=== PATIENT | female | born 1940 | race Caucasian/White ===

== ENCOUNTER 2016-10-25 12:32 | Inpatient (IN) | payer OTHER ==
[~2016-10-25] VITALS: Ht 165.1 cm; Wt 66.7 kg
[2016-10-25] MEDS ORDERED: NITROGLYCERIN 0.4 MG/TAB BOTTLE SL ONE (12:45)
[2016-10-25] MEDS ORDERED: AMLO5TAB2 PO (12:49)
[2016-10-25] MEDS ORDERED: HYDR12.5 PO (12:49)
[2016-10-25 12:51] LABS: BASOPHILS % (AUTO) 0.4 % (0.0-2.0); EOSINOPHILS # (AUTO) 0.1 K/uL (0.0-0.7); EOSINOPHILS % (AUTO) 1.2 % (0.0-7.0); HEMATOCRIT 37.4 % (37-47); HEMOGLOBIN 12.4 G/DL (12.0-16.0); LYMPHOCYTES # (AUTO) 1.8 K/UL (0.8-4.8); LYMPHOCYTES % (AUTO) 23.7 % (20.5-51.5); MEAN CORPUSCULAR HEMOGLOBIN 29.3 UUG (27.0-31.0); MEAN CORPUSCULAR HGB CONC 33 g/dL (32.0-37.0); MEAN CORPUSCULAR VOLUME 88.1 FL (81.0-99.0); MONOCYTES # (AUTO) 0.5 K/UL (0.1-1.30); MONOCYTES % (AUTO) 6.4 % (0.0-11.0); NEUTROPHILS % (AUTO) 68.3 % (38.5-71.5); PLATELET COUNT (AUTO) 227 K/UL (150-450); RED BLOOD CELL COUNT(AUTO) 4.24 MIL/UL (4.2-5.4); WHITE BLOOD COUNT (AUTO) 7.4 K/UL (4.0-11.2)
--- NOTE | 2016-10-25 12:53 | NUR ---
PT IS IN ROOM #1B. DR EPPS EVALUATED THE PT.
[2016-10-25 13:00] LABS: CARBON DIOXIDE 34 mmol/L (21-32); CHLORIDE 103 mmol/L (98-107); GLUCOSE 108 mg/dL (74-106); POTASSIUM 3.5 mmol/L (3.5-5.1); UREA NITROGEN, BLOOD 25 mg/dL (7-18)
[2016-10-25] MEDS ORDERED: ONDANSETRON IV *ER 4 MG/2 ML VIAL IV ONE (13:00)
[2016-10-25] MEDS ORDERED: MORPHINE SULFATE 2 MG/1 ML DISP.SYRIN IV ONE ×2 (13:00→14:15)
--- NOTE | 2016-10-25 13:04 | NUR ---
Jerod beltran in [facility] - 10/25/16 at 1304 by SADIA PT IS IN ROOM #1B. OLGA EPPS EVALUATED THE PT,
[2016-10-25] MEDS ORDERED: ONDANSETRON 4 MG/2 ML VIAL ONE (13:07)
[2016-10-25] MEDS ORDERED: MORPHINE SULFATE 2 MG/1 ML DISP.SYRIN ONE ×2 (13:20→14:19)
[2016-10-25] MEDS ORDERED: ACETAMINOPHEN 325 MG TABLET PO PRN (15:00)
[2016-10-25] MEDS ORDERED: ONDANSETRON 4 MG/2 ML VIAL IV PRN (15:00)
[2016-10-25] MEDS ORDERED: MORPHINE SULFATE 2 MG/1 ML DISP.SYRIN IV PRN (15:00)
--- NOTE | 2016-10-25 15:01 | NUR ---
REPORT WAS GIVEN TO DOCTOR OF NAPR[facility]ATH[facility]IC[facility]. PT WAS TRANSFERED TO ROOM #217.
[2016-10-25 15:15] VITALS: BP 132/64
[2016-10-25] MEDS ORDERED: ASPIRIN EC 325 MG TABLET.DR PO SCH (15:15)
[2016-10-25] MEDS ORDERED: NITROGLYCERIN 0.4 MG/TAB BOTTLE SL PRN (15:15)
[2016-10-25 15:18] LABS: BILIRUBIN,DIRECT 0.2 mg/dL (0.0-0.2); BILIRUBIN,TOTAL 0.6 mg/dL (0.2-1.0); TOTAL PROTEIN, SERUM 7.2 g/dL (6.4-8.2)
--- NOTE | 2016-10-25 15:20 | NUR ---
PATIENT RECEIVED FROM ER, IMMEDIATELY US AND EKG PERFORMED ON PATIENT. INTAKE PROCEDURE COMPLETED AND PATIENT SERVED DINNER, AND FIRST DOSE ON ANTIBIOTICS. PATIENT WAS SEEN BY RIVER TESTER, NEW LABS TO BE DRAWN IN THE NEXT 3-6 HOURS TO EVALUATE TROPONIN LEVELS.
[2016-10-25] MEDS ORDERED: FUROSEMIDE 20 MG/2 ML VIAL IV ONE (15:30)
[2016-10-25] MEDS: PIPERACILLIN/TAZOBACTAM/D5W 50 ML IV SCH ×2 (18:37→23:41)
[2016-10-25 19:00] VITALS: BP 134/76
[2016-10-25] MEDS ORDERED: FUROSEMIDE 20 MG/2 ML VIAL ONE (20:00)
--- NOTE | 2016-10-25 20:00 | NUR ---
received patient alert,oriented,in no acute distress,daughter at bedside,patient denies chest pain,bp 134/76,SR,SB on monitor,lasix 20 mg iv given as ordered,bedside commode provided,instruction,plan of care given,family verbalized understanding.
[2016-10-25] MEDS: METOPROLOL TARTRATE 25 MG TABLET PO SCH (20:31)
--- NOTE | 2016-10-25 23:40 | NUR ---
patient feels nausea and vomiting small amount of undigested food, Zofran 4 mg iv admin.
[2016-10-26] VITALS (7 sets, daily range): BP systolic 93–134; BP diastolic 43–67
--- NOTE | 2016-10-26 00:30 | NUR ---
patient feels better,nausea improved.
[2016-10-26 04:50] LABS: EOSINOPHILS # (AUTO) 0.1 K/uL (0.0-0.7); EOSINOPHILS % (AUTO) 0.8 % (0.0-7.0); HEMATOCRIT 38.3 % (37-47); LYMPHOCYTES # (AUTO) 0.6 K/UL (0.8-4.8); LYMPHOCYTES % (AUTO) 4.8 % (20.5-51.5); MEAN CORPUSCULAR HEMOGLOBIN 29.9 UUG (27.0-31.0); MEAN CORPUSCULAR HGB CONC 34 g/dL (32.0-37.0); MONOCYTES # (AUTO) 0.7 K/UL (0.1-1.30); MONOCYTES % (AUTO) 5.6 % (0.0-11.0); NEUTROPHILS # (AUTO) 11.4 K/UL (1.8-8.9); NEUTROPHILS % (AUTO) 88.8 % (38.5-71.5); PLATELET COUNT (AUTO) 220 K/UL (150-450); RED BLOOD CELL COUNT(AUTO) 4.35 MIL/UL (4.2-5.4); WHITE BLOOD COUNT (AUTO) 12.8 K/UL (4.0-11.2)
[2016-10-26 04:57] LABS: THYROID STIMULATING HORMONE 0.517 mIU/mL (0.358-3.740)
[2016-10-26 06:14] LABS: ALANINE AMINOTRANSFERASE 463 U/L (14-59); ALKALINE PHOSPHATASE 186 U/L (50-136); ASPARTATE AMINOTRANSFERASE 588 U/L (15-37); BILIRUBIN,TOTAL 1.5 mg/dL (0.2-1.0); CARBON DIOXIDE 32 mmol/L (21-32); CHLORIDE 102 mmol/L (98-107); CHOLESTEROL 195 mg/dL (<200); CREATININE 1.1 mg/dL (0.6-1.3); GLUCOSE 121 mg/dL (74-106); HDL CHOLESTEROL 53 mg/dL (40-60); MAGNESIUM 1.6 mg/dL (1.8-2.4); PHOSPHOROUS 4.1 mg/dL (2.5-4.9); POTASSIUM 3.5 mmol/L (3.5-5.1); TOTAL PROTEIN, SERUM 7.3 g/dL (6.4-8.2); TRIGLYCERIDES 80 MG/DL (30-150); UREA NITROGEN, BLOOD 24 mg/dL (7-18)
--- NOTE | 2016-10-26 06:26 | NUR ---
PATIENT SLEPT INTERMITTENTLY,NO ACUTE DISTRESS,NSR/SINUS ENDY ON MONITOR,BP STABLE,FALL PRECAUTIONS,BED ALARM ON.
--- NOTE | 2016-10-26 08:00 | NUR ---
10/26/16 - 9450 Note on: RAMBO ESPANA ASSUMED CARE OF PT, SB ON THE MONITOR, PT IS ASYMPTOMATIC. OTHER VITALS STABLE, NO PAIN REPORTED. PT IS FARSI SPEAKING, DAUGHTER AT THE BED SIDE TRANSLATING. WILL CONTINUE TO MONITOR
[2016-10-26] MEDS ORDERED: ASPIRIN EC 81 MG TABLET.DR PO SCH ×2 (09:00)
[2016-10-26] MEDS: METOPROLOL TARTRATE 25 MG TABLET PO SCH (09:00)
[2016-10-26] MEDS ORDERED: ASPIRIN EC 325 MG TABLET.DR PO SCH (09:00)
[2016-10-26] MEDS ORDERED: MAGNESIUM SULFATE/D5W 100 ML IV SCH (10:00)
[2016-10-26] MEDS ORDERED: PIPERACILLIN/TAZOBACTAM/D5W 3.375 G in PREMIXED 1 EACH IV SCH (10:00)
--- NOTE | 2016-10-26 10:30 | NUR ---
NURSE NOTES: NOTED ELEVATED TROPONIN, ELEVATED LIVER PANEL, ELEVATED WBC AND MG 1.6. NOTIFIED LAZARUS BUCKLE SORTER. SHE ATTENDED TO PT, ORDERED MG IV AND HIDA SCAN. DAUGHTER AT THE BED SIDE UPDATED ON STATUS AND PLAN OF CARE.
--- NOTE | 2016-10-26 11:31 | NUR ---
Clinical Pharmacy Note: Vancomycin Dosing per Pharmacy Subjective: Vancomycin IV to start on this 77 yo female patient for empiric therapy ht 165 cm wt 66.6 kg Objective: BUN 24/Scr 1.1 WBC 12.8 Temperature 97.8 Assessment/Plan: Will start vancomycin 1000mg IVPB Q26hr for a predicted vancomycin steady state trough level of 15 mcg/ml. 1st dose is due today at 1200. Will draw a vancomycin trough level prior to the 4th dose of vancomycin (not ordered yet). Will monitor renal function and adjust vancomycin dose, if needed, should renal function change significantly. Will follow daily. Addendum: 10/26/16 at 1545 by EMERSON SPAULDING Per RN patient was off the floor. Rescheduled for 1700 (when patient came back from test/procedure)
[2016-10-26 11:53] LABS: *BILIRUBIN,URIN NEGATIVE (NEGATIVE); *BLOOD, URINE 2+ (NEGATIVE); *COLOR,URINE YELLOW (YELLOW); *KETONES,URINE TRACE (NEGATIVE); *PROTEIN,URINE NEGATIVE (NEGATIVE); *UROBILINOGEN,URINE 0.2 E.U./dl (NORMAL); LEUKOCYTE ESTERASE ,URINE 1+ (NEGATIVE); NITRITE, URINE NEGATIVE (NEGATIVE); UGLUCOSE NEGATIVE (NEGATIVE)
[2016-10-26 11:55] LABS: *CLARITY,URINE HAZY (CLEAR)
[2016-10-26] MEDS ORDERED: VANCOMYCIN IV 1 G in PREMIXED 0 EACH IV SCH ×2 (12:00→17:00)
[2016-10-26 12:02] LABS: BACTERIA,URINE FEW /HPF (NONE SEEN)
[2016-10-26 12:03] LABS: SQUAMOUS EPITHELIAL CELL,UR MANY /HPF (NONE SEEN)
--- NOTE | 2016-10-26 12:45 | NUR ---
10/26/16 - 1327 Note on: RAMBO ESPANA PT DEPARTED FOR HIDA SCAN IN STABLE CONDITION S: O: A: P:
[2016-10-26 15:59] LABS: BASOPHILS % (AUTO) 0.4 % (0.0-2.0); EOSINOPHILS # (AUTO) 0.1 K/uL (0.0-0.7); EOSINOPHILS % (AUTO) 1.7 % (0.0-7.0); HEMATOCRIT 39.3 % (37-47); HEMOGLOBIN 12.8 G/DL (12.0-16.0); LYMPHOCYTES % (AUTO) 27.2 % (20.5-51.5); MEAN CORPUSCULAR HEMOGLOBIN 28.9 UUG (27.0-31.0); MEAN CORPUSCULAR HGB CONC 33 g/dL (32.0-37.0); MEAN CORPUSCULAR VOLUME 88.4 FL (81.0-99.0); MONOCYTES # (AUTO) 0.5 K/UL (0.1-1.30); MONOCYTES % (AUTO) 6.9 % (0.0-11.0); NEUTROPHILS # (AUTO) 4.8 K/UL (1.8-8.9); NEUTROPHILS % (AUTO) 63.8 % (38.5-71.5); PLATELET COUNT (AUTO) 215 K/UL (150-450); RED BLOOD CELL COUNT(AUTO) 4.45 MIL/UL (4.2-5.4); WHITE BLOOD COUNT (AUTO) 7.4 K/UL (4.0-11.2)
[2016-10-26 16:04] LABS: CARBON DIOXIDE 34 mmol/L (21-32); CHLORIDE 101 mmol/L (98-107); CREATININE 1.1 mg/dL (0.6-1.3); GLUCOSE 96 mg/dL (74-106); POTASSIUM 3.1 mmol/L (3.5-5.1); UREA NITROGEN, BLOOD 24 mg/dL (7-18)
[2016-10-26 16:15] LABS: ALANINE AMINOTRANSFERASE 398 U/L (14-59); ALKALINE PHOSPHATASE 165 U/L (50-136); ASPARTATE AMINOTRANSFERASE 361 U/L (15-37); BILIRUBIN,TOTAL 1.5 mg/dL (0.2-1.0); TOTAL PROTEIN, SERUM 7.1 g/dL (6.4-8.2)
[2016-10-26] MEDS: PIPERACILLIN/TAZOBACTAM/D5W 50 ML IV SCH ×2 (16:21→21:26)
[2016-10-26] MEDS ORDERED: HYDR50TA3 PO (17:42)
[2016-10-26] MEDS ORDERED: ALEN70TA45 PO (17:42)
[2016-10-26] MEDS: FUROSEMIDE 20 MG/2 ML VIAL IV SCH (18:09)
--- NOTE | 2016-10-26 18:20 | NUR ---
NURSES NOTE PLEASE CALL DAUGHTER WITH UPDATES. YANIRA [phone]
--- NOTE | 2016-10-26 19:03 | NUR ---
RN NOTE SPOKE TO DR GUTIERREZ, REPORTED LAB VALUES. NEW ORDER FOR HEPATITIS PANEL BLOOD WORK RECEIVED.
--- NOTE | 2016-10-26 19:19 | NUR ---
RN HAND OFF GIVEN TO GALDINO SUAREZ. PT IS IN STABLE CONDITION
--- NOTE | 2016-10-26 20:00 | NUR ---
PATIENT AWAKE,ALERT,FARSI SPEAKING,AFEBRILE,BP STABLE,DENIES ABDOMINAL PAIN,NO CHEST DISCOMFORT, NO NAUSEA NOTED, FAMILY VISITING AT BEDSIDE,PLAN OF CARE UP DATE,PATIENT NOT IN ANY DISTRESS,CONTINUE CLOSELY MONITOR.
[2016-10-27] MEDS: PIPERACILLIN/TAZOBACTAM/D5W 50 ML IV SCH (03:53)
[2016-10-27 04:12] VITALS: BP 127/60
--- NOTE | 2016-10-27 06:17 | NUR ---
PATIENT SLEEP MOST OF THE NIGHT,NO APPARENTLY DISTRESS,DENIES NAUSEA/PAIN,NEEDS ATTENDED.
[2016-10-27 06:47] LABS: BASOPHILS % (AUTO) 0.2 % (0.0-2.0); EOSINOPHILS # (AUTO) 0.2 K/uL (0.0-0.7); EOSINOPHILS % (AUTO) 3.2 % (0.0-7.0); HEMOGLOBIN 12.4 G/DL (12.0-16.0); LYMPHOCYTES # (AUTO) 1.9 K/UL (0.8-4.8); LYMPHOCYTES % (AUTO) 30.3 % (20.5-51.5); MEAN CORPUSCULAR HEMOGLOBIN 29.1 UUG (27.0-31.0); MEAN CORPUSCULAR HGB CONC 33 g/dL (32.0-37.0); MEAN CORPUSCULAR VOLUME 89.2 FL (81.0-99.0); MONOCYTES # (AUTO) 0.6 K/UL (0.1-1.30); MONOCYTES % (AUTO) 8.7 % (0.0-11.0); NEUTROPHILS # (AUTO) 3.6 K/UL (1.8-8.9); NEUTROPHILS % (AUTO) 57.6 % (38.5-71.5); PLATELET COUNT (AUTO) 191 K/UL (150-450); RED BLOOD CELL COUNT(AUTO) 4.27 MIL/UL (4.2-5.4); WHITE BLOOD COUNT (AUTO) 6.3 K/UL (4.0-11.2)
[2016-10-27 06:59] LABS: ALANINE AMINOTRANSFERASE 317 U/L (14-59); ALKALINE PHOSPHATASE 149 U/L (50-136); ASPARTATE AMINOTRANSFERASE 222 U/L (15-37); BILIRUBIN,TOTAL 0.8 mg/dL (0.2-1.0); CARBON DIOXIDE 35 mmol/L (21-32); CHLORIDE 101 mmol/L (98-107); CREATININE 1.3 mg/dL (0.6-1.3); GLUCOSE 91 mg/dL (74-106); MAGNESIUM 1.9 mg/dL (1.8-2.4); PHOSPHOROUS 4.2 mg/dL (2.5-4.9); POTASSIUM 3.2 mmol/L (3.5-5.1); TOTAL PROTEIN, SERUM 6.9 g/dL (6.4-8.2); UREA NITROGEN, BLOOD 23 mg/dL (7-18)
[2016-10-27] MEDS: ASPIRIN EC 325 MG TABLET.DR PO SCH ×2 (09:00→10:04)
[2016-10-27] MEDS: FUROSEMIDE 20 MG/2 ML VIAL IV SCH (10:03)
[2016-10-27] MEDS ORDERED: POTASSIUM CHLORIDE 20 MEQ TAB.PRT.SR PO ONE (10:15)
[2016-10-27] MEDS: PIPERACILLIN/TAZOBACTAM/D5W 2.25 G in PREMIXED 1 EACH IV SCH ×3 (10:17→22:00)
[2016-10-27] MEDS: ASPIRIN EC 81 MG TABLET.DR PO SCH (10:18)
[2016-10-27 11:56] VITALS: BP 119/66
[2016-10-27] MEDS ORDERED: REGADENOSON 0.4 MG/5 ML PREFILLED SYR IV ONE (14:00)
[2016-10-27] MEDS: PANTOPRAZOLE SODIUM 40 MG TABLET.DR PO SCH (14:13)
[2016-10-27 15:16] VITALS: BP 120/73
--- NOTE | 2016-10-27 20:00 | NUR ---
RECEIVED PATIENT AWAKE IN BED. PATIENT IS A/OX3. FARSI SPEAKING BUT ABLE TO MAKE SIMPLE NEEDS KNOWN, OTHERWISE PATIENT NEEDS A BORE MILL OPERATOR. DENIES PAIN OR DISCOMFORT. NO RESP. DISTRESS NOTED. H/L INTACT AND PATENT, NOTED TO RIGHT FA #20 GAUGE. CALL LIGHT IN REACH. ALL NEEDS ATTENDED. WILL CONTINUE TO MONITOR.
[2016-10-27 20:34] VITALS: BP 113/64
[2016-10-27] MEDS ORDERED: VANCOMYCIN IV 1 G in PREMIXED 0 EACH IV SCH (22:00)
[2016-10-28 04:00] VITALS: BP 96/60
[2016-10-28] MEDS: PIPERACILLIN/TAZOBACTAM/D5W 2.25 G in PREMIXED 1 EACH IV SCH ×2 (04:08→10:56)
[2016-10-28] MEDS: PANTOPRAZOLE SODIUM 40 MG TABLET.DR PO SCH (06:14)
--- NOTE | 2016-10-28 06:25 | NUR ---
PATIENT ASLEEP IN BED. EASILY AROUSABLE. SLEPT WELL THROUGHOUT THE NIGHT. VSS. DENIES PAIN. CALL LIGHT IN REACH. ALL NEEDS ATTENDED. WILL CONTINUE TO MONITOR.
[2016-10-28 06:46] LABS: ALANINE AMINOTRANSFERASE 200 U/L (14-59); ALKALINE PHOSPHATASE 123 U/L (50-136); ASPARTATE AMINOTRANSFERASE 94 U/L (15-37); BILIRUBIN,TOTAL 0.4 mg/dL (0.2-1.0); CARBON DIOXIDE 36 mmol/L (21-32); CHLORIDE 103 mmol/L (98-107); CREATININE 1.1 mg/dL (0.6-1.3); GLUCOSE 96 mg/dL (74-106); MAGNESIUM 1.7 mg/dL (1.8-2.4); PHOSPHOROUS 3.9 mg/dL (2.5-4.9); TOTAL PROTEIN, SERUM 6.5 g/dL (6.4-8.2); UREA NITROGEN, BLOOD 23 mg/dL (7-18)
[2016-10-28 06:57] LABS: BASOPHILS % (AUTO) 0.4 % (0.0-2.0); EOSINOPHILS # (AUTO) 0.2 K/uL (0.0-0.7); HEMATOCRIT 35.9 % (37-47); HEMOGLOBIN 11.8 G/DL (12.0-16.0); LYMPHOCYTES # (AUTO) 1.8 K/UL (0.8-4.8); LYMPHOCYTES % (AUTO) 25.8 % (20.5-51.5); MEAN CORPUSCULAR HEMOGLOBIN 29.2 UUG (27.0-31.0); MEAN CORPUSCULAR HGB CONC 33 g/dL (32.0-37.0); MEAN CORPUSCULAR VOLUME 88.8 FL (81.0-99.0); MONOCYTES # (AUTO) 0.5 K/UL (0.1-1.30); MONOCYTES % (AUTO) 7.6 % (0.0-11.0); NEUTROPHILS # (AUTO) 4.7 K/UL (1.8-8.9); NEUTROPHILS % (AUTO) 63.2 % (38.5-71.5); PLATELET COUNT (AUTO) 221 K/UL (150-450); RED BLOOD CELL COUNT(AUTO) 4.04 MIL/UL (4.2-5.4); WHITE BLOOD COUNT (AUTO) 7.2 K/UL (4.0-11.2)
[2016-10-28] MEDS: ASPIRIN EC 81 MG TABLET.DR PO SCH (09:03)
[2016-10-28] MEDS: FUROSEMIDE 20 MG/2 ML VIAL IV SCH (09:03)
[2016-10-28 10:10] LABS: HEPATITIS A AB, IgM Negative (Negative); HEPATITIS A AB, TOTAL Positive (Negative); HEPATITIS B SURFACE AB Non Reactive (.)
[2016-10-28] MEDS ORDERED: MAGNESIUM OXIDE 400 MG TABLET PO ONE ×2 (10:45)
[2016-10-28] MEDS: POTASSIUM CHLORIDE 20 MEQ TAB.PRT.SR PO SCH ×3 (10:56→13:50)
--- NOTE | 2016-10-28 12:00 | NUR ---
RESTING WELL NO SOB OR PAIN EAT WELL FAMILY AT BEDSIDE DR HAKEEM SCHOFIELD SEEN PATIENT AND LAB RESULT AND ORDER OK TO D/C HOME TODAY WITH PRECRIPTION [facility] WAS CALL TO INSTRUCTION HOME MEDICINE AND D/C INSTRUCTION GIVEN TO PATIENT AND FAMILY ,VERBALIZES UNDERSTAND AND SIGNS D/C SHEET
[2016-10-28 12:01] VITALS: BP 97/47
[2016-10-28] MEDS ORDERED: LEVOFLOXACIN 500 MG TABLET PO SCH (12:30)
[2016-10-28] MEDS ORDERED: LEVOFLOXACIN 500 MG TABLET PO ONE (13:00)
--- NOTE | 2016-10-28 13:30 | NUR ---
[facility] INSTRUCTION ON HOME MEDICINE TO PT /FAMILY /UNDERSTAND
--- NOTE | 2016-10-28 13:50 | NUR ---
D/C HOME WITH HER BELONGING CONDITION STABLE PAIN UNDERCONTROL
--- NOTE | 2016-10-28 13:50 | NUR ---
K DUR LAST DOSE GIVEN PRIOR D/C HOME TODAY
[2016-10-28] MEDS ORDERED: METRONIDAZOLE 500 MG TABLET PO SCH (14:00)
[2016-10-29 05:06] LABS: HEPATITIS Be ANTIGEN Negative (Negative)
[2016-10-29] MEDS ORDERED: LEVOFLOXACIN 250 MG TABLET PO SCH (13:00)
== END 2016-10-28 13:47 | disposition home or self-care (01) | DRG 190 ==
LOC: ER 12:40 → TELE 14:57 → MED 10-26 18:30
PROVIDERS: ADMIT Internal Medicine; ATTEND Internal Medicine
DX: I21.4 Non-ST elevation (NSTEMI) myocardial infarction (principal); I50.33 Acute on chronic diastolic (congestive) heart failure; E87.2 Acidosis; E88.09 Other disorders of plasma-protein metabolism, not elsewhere classified; M48.54XA Collapsed vertebra, not elsewhere classified, thoracic region, initial encounter for fracture; K80.20 Calculus of gallbladder without cholecystitis without obstruction; N39.0 Urinary tract infection, site not specified; I11.0 Hypertensive heart disease with heart failure; Z96.653 Presence of artificial knee joint, bilateral; Z82.3 Family history of stroke; Z82.49 Family history of ischemic heart disease and other diseases of the circulatory system; E87.6 Hypokalemia; E78.5 Hyperlipidemia, unspecified; Z79.899 Other long term (current) drug therapy; K75.9 Inflammatory liver disease, unspecified; Z90.49 Acquired absence of other specified parts of digestive tract; K52.9 Noninfective gastroenteritis and colitis, unspecified
CPT/HCPCS: 36415; 70030-TC; 71010; 78445; 78452; 83605; 83690; 83735; 84100; 84443; 85025; 85730; 86705; 86706; 86708; 86709; 86803; 87040; 87086; 87350; 93005; 93307; 97161; A4663; A9502; A9537; J1940; J2270; J2405; J2543; J2785; J3370; J3475; J7040

== ENCOUNTER 2019-08-06 17:44 | Emergency (ER) | payer BC, MEDICAID, OTHER ==
[~2019-08-06] VITALS: Ht 165.1 cm; Wt 79.4 kg
[~2019-08-06 17:44] MED LIST: ALEN70TA6 PO; AMLO5TAB9 PO; HYDR50TA3 PO
[2019-08-06] MEDS ORDERED: MORPHINE SULFATE 2 MG/1 ML DISP.SYRIN ONE (17:57)
[2019-08-06] MEDS ORDERED: MORPHINE SULFATE 2 MG/1 ML DISP.SYRIN IM ONE (18:00)
--- NOTE | 2019-08-06 18:02 | NUR ---
Patient's family is in the waiting room. The patient's daughter was updated by Dr Lawson.
[2019-08-06] MEDS ORDERED: ASPI81TA31 PO (18:03)
--- NOTE | 2019-08-06 18:57 | NUR ---
Daughter is coming to fruit or nut picker patient.
--- NOTE | 2019-08-06 19:16 | NUR ---
Patient discharged to home in stable condition. Written and verbal after care instructions given. Patient verbalizes understanding of instructions. Stressed follow up or return to ER for worsening s/s. Pt ambulated out of ER with steady gait, no acute signs of distress, VSS, all belongings taken, to be driven home by daughter via private vehicle.
[2019-08-06 19:17] VITALS: BP 151/83
== END 2019-08-06 19:18 | disposition home or self-care (01) ==
LOC: ER 17:46
DX: S09.90XA Unspecified injury of head, initial encounter (principal); W01.0XXA Fall on same level from slipping, tripping and stumbling without subsequent striking against object, initial encounter; Y92.010 Kitchen of single-family (private) house as the place of occurrence of the external cause; S30.0XXA Contusion of lower back and pelvis, initial encounter; Z79.82 Long term (current) use of aspirin; M43.16 Spondylolisthesis, lumbar region
CPT/HCPCS: 70450; 72100; 72170; 96372; 99284; J2270; A4663

== ENCOUNTER 2020-07-14 06:05 | Emergency (ER) | payer MEDICAID ==
[~2020-07-14] VITALS: Ht 162.6 cm; Wt 79.4 kg
[~2020-07-14 06:05] MED LIST changes: -ALEN70TA6 PO; +AMLO-212 PO; -AMLO5TAB9 PO; +ASPI81TA31 PO; -HYDR50TA3 PO; +HYDR50TA4 PO
[2020-07-14] MEDS ORDERED: DONE5TAB7 PO (06:51)
[2020-07-14] MEDS ORDERED: CALC500T52 PO (06:51)
[2020-07-14] MEDS ORDERED: SIMV-46 PO (06:51)
[2020-07-14] MEDS ORDERED: ALLO100T PO (06:51)
[2020-07-14] MEDS ORDERED: OMEG1CAP PO (06:51)
[2020-07-14] MEDS ORDERED: SERT50TA PO (06:51)
--- NOTE | 2020-07-14 07:03 | NUR ---
PT IS IN ROOM #2A. DR SALEEM EVALUATED THE PT.
[2020-07-14 07:43] LABS: BASOPHILS % (AUTO) 0.6 % (0.0-2.0); EOSINOPHILS # (AUTO) 0.2 K/uL (0.0-0.7); EOSINOPHILS % (AUTO) 2.6 % (0.0-7.0); HEMATOCRIT 38.5 % (31.2-41.9); HEMOGLOBIN 13.1 g/dL (10.9-14.3); LYMPHOCYTES # (AUTO) 1.2 K/uL (20.0-40.0); LYMPHOCYTES % (AUTO) 16.2 % (20.5-51.5); MEAN CORPUSCULAR HEMOGLOBIN 30.8 uug (24.7-32.8); MEAN CORPUSCULAR HGB CONC 34 g/dL (32.3-35.6); MEAN CORPUSCULAR VOLUME 90.6 fL (75.5-95.3); MONOCYTES # (AUTO) 0.8 K/uL (2.0-10.0); MONOCYTES % (AUTO) 10.1 % (0.0-11.0); NEUTROPHILS # (AUTO) 5.4 K/uL (1.8-8.9); NEUTROPHILS % (AUTO) 70.5 % (38.5-71.5); PLATELET COUNT (AUTO) 208 K/uL (179-408); RED BLOOD CELL COUNT(AUTO) 4.25 MIL/uL (3.63-4.92); WHITE BLOOD COUNT (AUTO) 7.6 K/uL (3.8-11.8)
[2020-07-14 08:04] LABS: *BILIRUBIN,URIN NEGATIVE (NEGATIVE); *BLOOD, URINE 1+ (NEGATIVE); *CLARITY,URINE SLIGHTLY CLOUDY (CLEAR); *COLOR,URINE YELLOW (YELLOW); *KETONES,URINE NEGATIVE (NEGATIVE); *UROBILINOGEN,URINE 0.2 E.U./dl (NORMAL); LEUKOCYTE ESTERASE ,URINE NEGATIVE (NEGATIVE); NITRITE, URINE NEGATIVE (NEGATIVE); UGLUCOSE NEGATIVE (NEGATIVE)
[2020-07-14 08:15] LABS: MUCUS,URINE MODERATE /LPF (0-FEW); SQUAMOUS EPITHELIAL CELL,UR MANY /HPF (NONE SEEN)
[2020-07-14 08:15] LABS: POTASSIUM 3.5 mmol/L (3.5-5.1)
[2020-07-14 08:18] LABS: WBC,URINE 0-3 /HPF (0-3)
[2020-07-14 08:19] LABS: BACTERIA,URINE MODERATE /HPF (NONE SEEN)
[2020-07-14 08:25] LABS: CALCIUM PHOSPHATE CRYSTALS,UR RARE /HPF (NONE SEEN)
[2020-07-14 08:27] LABS: BILIRUBIN,DIRECT 0.8 mg/dL (0.0-0.2); BILIRUBIN,TOTAL 0.4 mg/dL (0.2-1.0); TOTAL PROTEIN, SERUM 6.7 g/dL (6.4-8.2)
[2020-07-14] MEDS: ASPIRIN 81 MG TAB.CHEW PO ONE (08:48)
[2020-07-14] MEDS: FUROSEMIDE 40 MG/4 ML VIAL IV ONE (08:48)
[2020-07-14] MEDS ORDERED: ASPIRIN 81 MG TAB.CHEW ONE (08:51)
[2020-07-14] MEDS ORDERED: FUROSEMIDE 40 MG/4 ML VIAL ONE (08:51)
--- NOTE | 2020-07-14 09:42 | NUR ---
DR SALEEM TALKED TO [facility] LOAN REVIEWER FABIÁN AND TO DR Albert PERSON FROM [facility]. PT IS GOING TO BE TRANSFERED TO [facility]IA [facility] ACCORDING TO INSURANCE REQUEST. DR SALEEM TALKED TO PT'S GRETA ABOUT TRANSFER OPTIONS.
--- NOTE | 2020-07-14 10:52 | NUR ---
PT IS ACCEPTED BY DR PERSON, FROM [facility]. PT IS GOING TO BE TRANSFERED TO [facility] , TELEMETRY FLOOR, ROOM #620 - [facility]IA [facility]. [facility] WAS CALLED. LEXUS IS 13:00 PM.
--- NOTE | 2020-07-14 12:46 | NUR ---
REPORT WAS GIVEN TO GALDINO BHATIA FROM TELEMETRY FLOOR AT [facility].
--- NOTE | 2020-07-14 14:22 | NUR ---
PT WAS TRANSFERED TO [facility]IA [facility]. REPORT WAS GIVEN TO AMBULANCE RN.
== END 2020-07-14 14:26 | disposition short-term general hospital (02) ==
LOC: ER 06:06
DX: R55 Syncope and collapse (principal); S06.9X9A Unspecified intracranial injury with loss of consciousness of unspecified duration, initial encounter; X58.XXXA Exposure to other specified factors, initial encounter; Y92.019 Unspecified place in single-family (private) house as the place of occurrence of the external cause; I11.0 Hypertensive heart disease with heart failure; I50.9 Heart failure, unspecified; Z20.822 Contact with and (suspected) exposure to COVID-19; R77.8 Other specified abnormalities of plasma proteins; R10.13 Epigastric pain; R10.2 Pelvic and perineal pain; E78.5 Hyperlipidemia, unspecified; Z79.82 Long term (current) use of aspirin; Z79.899 Other long term (current) drug therapy; R94.8 Abnormal results of function studies of other organs and systems
CPT/HCPCS: 36415; 70450; 71045; 74176; 80048; 80076; 81001; 83605; 83880; 84145; 84484; 85025; 85730; 86850; 86900; 86901; 87040 ×2; 87086; 87426; 93005; 96374; 99285; J1940; 70030-TC; A4663